=== PATIENT | female | born 1950 | race Hispanic/Latino ===

== ENCOUNTER 2023-12-02 11:19 | Emergency (ER) | payer OTHER, MEDICARE ==
[~2023-12-02] VITALS: Ht 154.9 cm; Wt 74.8 kg
[~2023-12-02 11:19] MED LIST: AMOX500T2 PO; ASPI-1005 PO; AUD IH; CLOP-31 PO; CYCL-309 PO; GUAI600T50 PO; LISI20TA24 PO; MECL-262 PO; METO-391 PO; NYST15CR39 TP; SIMV10TA97 PO
[2023-12-02 11:55] LABS: BASOPHILS # (AUTO) 0.02 K/uL (0.00-0.20); BASOPHILS % (AUTO) 0.3 % (0.0-5.0); EOSINOPHILS # (AUTO) 0.02 K/uL (0.00-0.70); EOSINOPHILS % (AUTO) 0.3 % (0.0-8.0); HEMATOCRIT 47.8 % (36-48); IMMATURE GRANULOCYTE ABSOLUTE 0.02 K/uL (0-1); LYMPHOCYTES # (AUTO) 1.7 K/uL (1.0-4.8); LYMPHOCYTES % (AUTO) 23.4 % (21.0-51.0); MEAN CORPUSCULAR HEMOGLOBIN 32.5 pg (27.0-33.0); MEAN CORPUSCULAR HGB CONC 33.1 g/dL (32.0-36.0); MEAN CORPUSCULAR VOLUME 98.4 fL (79-99); MONOCYTES # (AUTO) 0.6 K/uL (0.1-1.0); MONOCYTES % (AUTO) 8.5 % (3.0-13.0); NEUTROPHILS % (AUTO) 67.2 % (40.0-77.0); PLATELET COUNT (AUTO) 259 K/uL (130-400); RED BLOOD CELL COUNT(AUTO) 4.86 MIL/uL (4.00-5.50); RED CELL DISTRIBUTION WIDTH 13.6 % (11.0-15.5); WHITE BLOOD COUNT (AUTO) 7.5 K/uL (4.8-10.8)
[2023-12-02 12:03] LABS: POTASSIUM 3.4 mmol/L (3.5-5.1)
[2023-12-02 12:07] LABS: ALBUMIN 3.9 g/dL (3.5-5.0); BILIRUBIN,TOTAL 1.1 mg/dL (0.2-1.0); TOTAL PROTEIN, SERUM 7.4 g/dL (6.0-8.3)
[2023-12-02] MEDS ORDERED: 0.9%NACL 1000ML 1,000 ML IV ONE (12:30)
[2023-12-02] MEDS ORDERED: MORPHINE 4 MG SYG IVP ONE (12:30)
[2023-12-02 12:46] LABS: APPEARANCE,URINE CLEAR (CLEAR); BILIRUBIN,URINE NEGATIVE (NEGATIVE); COLOR,URINE COLORLESS (YELLOW); GLUCOSE, URINE (UA) NEGATIVE (NEGATIVE); KETONES,URINE NEGATIVE (NEGATIVE); LEUKOCYTE ESTERASE ,URINE NEGATIVE Leu/uL (NEGATIVE); NITRATE,URINE NEGATIVE (NEGATIVE); OCCULT BLOOD,URINE NEGATIVE (NEGATIVE); PROTEIN,URINE NEGATIVE (NEGATIVE); UROBILINOGEN,URINE 0.2 mg/dL (0.2-1.0)
[2023-12-02 12:52] LABS: ADD UA MICROSCOPIC NO
[2023-12-02 14:48] VITALS: BP 153/81; PULSE 64; RESP 18; O2SAT 99
[2023-12-02] MEDS ORDERED: HYDR-3420 PO (15:09)
[2023-12-02] MEDS ORDERED: POLY17PO4 PO (15:09)
== END 2023-12-02 15:41 | disposition home or self-care (01) ==
LOC: EDH 11:19
DX: K57.90 Diverticulosis of intestine, part unspecified, without perforation or abscess without bleeding (principal); I16.1 Hypertensive emergency; K59.00 Constipation, unspecified; I10 Essential (primary) hypertension; E11.9 Type 2 diabetes mellitus without complications; E78.00 Pure hypercholesterolemia, unspecified; Z79.82 Long term (current) use of aspirin; Z79.899 Other long term (current) drug therapy; Z98.890 Other specified postprocedural states; Z95.5 Presence of coronary angioplasty implant and graft
CPT/HCPCS: 99285; 74176; 96374; 96361; 71045; 84484; 80053; 83690; 85025; 81003; 36415; 93005; J2270

== ENCOUNTER → 2024-04-21 | Outpatient (CLI) | payer OTHER, MEDICARE ==
[~2024-04-21] MED LIST changes: +HYDR-3420 PO; +POLY17PO4 PO
[2024-04-21 15:07] LABS: BASOPHILS # (AUTO) 0.01 K/uL (0.00-0.20); BASOPHILS % (AUTO) 0.1 % (0.0-5.0); EOSINOPHILS # (AUTO) 0.01 K/uL (0.00-0.70); EOSINOPHILS % (AUTO) 0.1 % (0.0-8.0); HEMATOCRIT 42.3 % (36-48); IMMATURE GRANULOCYTE ABSOLUTE 0.02 K/uL (0-1); LYMPHOCYTES # (AUTO) 2.3 K/uL (1.0-4.8); LYMPHOCYTES % (AUTO) 30.4 % (21.0-51.0); MEAN CORPUSCULAR HEMOGLOBIN 32.2 pg (27.0-33.0); MEAN CORPUSCULAR HGB CONC 33.1 g/dL (32.0-36.0); MEAN CORPUSCULAR VOLUME 97.2 fL (79-99); MONOCYTES # (AUTO) 0.6 K/uL (0.1-1.0); MONOCYTES % (AUTO) 7.7 % (3.0-13.0); NEUTROPHILS # (AUTO) 4.7 K/uL (1.8-7.7); NEUTROPHILS % (AUTO) 61.4 % (40.0-77.0); PLATELET COUNT (AUTO) 266 K/uL (130-400); RED BLOOD CELL COUNT(AUTO) 4.35 MIL/uL (4.00-5.50); RED CELL DISTRIBUTION WIDTH 13.4 % (11.0-15.5); WHITE BLOOD COUNT (AUTO) 7.6 K/uL (4.8-10.8)
[2024-04-21 15:24] LABS: ALBUMIN 3.7 g/dL (3.5-5.0); BILIRUBIN,TOTAL 1.3 mg/dL (0.2-1.0); CREATININE 0.9 mg/dL (0.5-1.0); POTASSIUM 3.8 mmol/L (3.5-5.1); TOTAL PROTEIN, SERUM 6.8 g/dL (6.0-8.3)
== END | disposition home or self-care (01) ==
LOC: LAB 14:35
PROVIDERS: ATTEND Internal Medicine Gastroenterology
DX: R10.30 Lower abdominal pain, unspecified (principal)
CPT/HCPCS: 36415; 80053; 85025

== ENCOUNTER → 2024-05-04 | Outpatient (CLI) | payer OTHER, MEDICARE ==
[~2024-05-04] MED LIST changes: +IOHEXOL 350 MG/ML 100ML INFUS..BTL IV ONE
== END | disposition home or self-care (01) ==
LOC: RAH 10:27
PROVIDERS: ATTEND Internal Medicine Gastroenterology
DX: R10.30 Lower abdominal pain, unspecified (principal)
CPT/HCPCS: 74177; Q9967

== ENCOUNTER → 2024-05-19 | Outpatient (CLI) | payer OTHER, MEDICARE ==
[~2024-05-19] MED LIST changes: -IOHEXOL 350 MG/ML 100ML INFUS..BTL IV ONE
[2024-05-19 16:48] LABS: T4 (THYROXINE) 7.9 ug/dL (4.7-13.3)
== END | disposition home or self-care (01) ==
LOC: LAB 13:50
PROVIDERS: ATTEND Internal Medicine Cardiovascular Disease
DX: F41.9 Anxiety disorder, unspecified (principal); R25.1 Tremor, unspecified
CPT/HCPCS: 36415; 84436; 84443; 84481

== ENCOUNTER 2024-07-17 10:52 | Observation (INO) | payer OTHER, MEDICARE ==
[2024-07-17] VITALS (7 sets, daily range): BP systolic 138–199; BP diastolic 72–86; PULSE 50–67; RESP 16–18; TEMP 97.9–98.7; O2SAT 98–99
[~2024-07-17] VITALS: Ht 157.5 cm; Wt 66.7 kg
[2024-07-17 11:22] LABS: APPEARANCE,URINE CLEAR (CLEAR); BILIRUBIN,URINE NEGATIVE (NEGATIVE); COLOR,URINE LIGHT-YELLOW (YELLOW); GLUCOSE, URINE (UA) NEGATIVE (NEGATIVE); KETONES,URINE NEGATIVE (NEGATIVE); LEUKOCYTE ESTERASE ,URINE NEGATIVE Leu/uL (NEGATIVE); NITRATE,URINE NEGATIVE (NEGATIVE); OCCULT BLOOD,URINE SMALL (NEGATIVE); PROTEIN,URINE 10 mg/dL (NEGATIVE); UROBILINOGEN,URINE 0.2 mg/dL (0.2-1.0)
[2024-07-17 11:23] LABS: ADD UA MICROSCOPIC YES
[2024-07-17 11:25] LABS: MUCUS,URINE RARE LPF (None Seen); SQUAMOUS EPITHELIAL CELL,UR RARE /HPF (0-2); WBC,URINE 0-1 /HPF (0-1)
[2024-07-17 11:35] LABS: BASOPHILS # (AUTO) 0.02 K/uL (0.00-0.20); BASOPHILS % (AUTO) 0.2 % (0.0-5.0); EOSINOPHILS # (AUTO) 0.01 K/uL (0.00-0.70); EOSINOPHILS % (AUTO) 0.1 % (0.0-8.0); HEMATOCRIT 40.2 % (36-48); IMMATURE GRANULOCYTE ABSOLUTE 0.02 K/uL (0-1); LYMPHOCYTES # (AUTO) 1.5 K/uL (1.0-4.8); LYMPHOCYTES % (AUTO) 15.9 % (21.0-51.0); MEAN CORPUSCULAR HEMOGLOBIN 32.4 pg (27.0-33.0); MEAN CORPUSCULAR HGB CONC 33.6 g/dL (32.0-36.0); MEAN CORPUSCULAR VOLUME 96.4 fL (79-99); MONOCYTES # (AUTO) 0.9 K/uL (0.1-1.0); MONOCYTES % (AUTO) 9.1 % (3.0-13.0); NEUTROPHILS # (AUTO) 7.2 K/uL (1.8-7.7); NEUTROPHILS % (AUTO) 74.5 % (40.0-77.0); PLATELET COUNT (AUTO) 224 K/uL (130-400); RED BLOOD CELL COUNT(AUTO) 4.17 MIL/uL (4.00-5.50); RED CELL DISTRIBUTION WIDTH 13.2 % (11.0-15.5); WHITE BLOOD COUNT (AUTO) 9.6 K/uL (4.8-10.8)
[2024-07-17 11:42] LABS: POTASSIUM 3.4 mmol/L (3.5-5.1)
[2024-07-17 11:55] LABS: B-TYPE NATRIURETIC PEPTIDE 48 pg/mL (0-100)
[2024-07-17 12:17] LABS: PROTHROMBIN TIME 10.8 SEC (9.6-11.6)
[2024-07-17 12:18] LABS: PARTIAL THROMBOPLASTIN TIME 26.9 SEC (26.3-35.5)
[2024-07-17] MEDS: NITROGLYCERIN 0.4 MG SL TAB SL PRN ×2 (12:42→22:55)
[2024-07-17] MEDS: acetaMINOPHEN 500 MG TABLET PO PRN (13:11)
[2024-07-17] MEDS ORDERED: TELM40TA8 PO (13:20)
[2024-07-17] MEDS ORDERED: ATOR10 PO (13:20)
[2024-07-17] MEDS ORDERED: SOLI5TAB6 PO (13:20)
[2024-07-17 13:25] LABS: SARS-CoV-2, RNA, NAAT NEGATIVE SARS CoV-2 (NEGATIVE)
[2024-07-17 13:28] LABS: INFLUENZA TYPE A Negative For Type A (NEGATIVE); INFLUENZA TYPE B Negative For Type B (NEGATIVE)
[2024-07-17 14:08] LABS: HEMOGLOBIN A1C 5.4 % (4.0-6.0)
[2024-07-17 14:14] LABS: THYROID STIMULATING HORMONE 0.91 uIU/mL (0.36-3.74)
[2024-07-17] MEDS: FAMOTIDINE 20MG VIAL IV SCH (14:21)
[2024-07-17] MEDS: PoTASSium chloRIDE 20MEQ ER 20 MEQ ERTAB PO ONE (14:21)
[2024-07-17 15:38] LABS: ALBUMIN 3.4 g/dL (3.5-5.0); BILIRUBIN,DIRECT 0.3 mg/dL (0.0-0.3); BILIRUBIN,TOTAL 1.9 mg/dL (0.2-1.0); TOTAL PROTEIN, SERUM 6.4 g/dL (6.0-8.3)
[2024-07-17] MEDS: atorVAStatin 40 MG TABLET PO SCH (20:46)
[2024-07-17] MEDS: LoSARTan 50 MG TABLET PO SCH (20:46)
[2024-07-17] MEDS: hydrALAZine 20MG/ML VIAL IV PRN (22:39)
[2024-07-17] MEDS: morPHINE 2 MG SYG IVP ONE (23:30)
[2024-07-18] VITALS (8 sets, daily range): BP systolic 112–156; BP diastolic 44–88; PULSE 61–76; RESP 16–18; TEMP 98.3–99.4; O2SAT 97–98
[2024-07-18 04:27] LABS: CREATININE 0.9 mg/dL (0.5-1.0); MAGNESIUM 1.9 mg/dL (1.80-2.40); POTASSIUM 3.6 mmol/L (3.5-5.1)
[2024-07-18] MEDS: MAGNESIUM 2GM PREMIX 50ML 50 ML IV SCH (06:25)
[2024-07-18] MEDS: ENOXAPARIN SODIUM 30 MG/0.3 ML SQ SCH (09:00)
[2024-07-18] MEDS: Solifenacin Succinate 5 MG PO SCH (09:00)
[2024-07-18] MEDS: metOPROLol sucCINATE 50 MG TAB.SR.24H PO SCH (13:12)
[2024-07-18] MEDS: ASPIRIN 81MG CHEW TAB PO SCH (13:12)
[2024-07-18] MEDS: REGADENOSON 0.4 MG/5 ML PF SYG IVP SCH (13:37)
[2024-07-19 03:25] VITALS: BP 126/60; PULSE 54; RESP 16; TEMP 98.7
[2024-07-19 03:51] LABS: BASOPHILS # (AUTO) 0.02 K/uL (0.00-0.20); BASOPHILS % (AUTO) 0.3 % (0.0-5.0); EOSINOPHILS % (AUTO) 1.3 % (0.0-8.0); HEMATOCRIT 40.8 % (36-48); IMMATURE GRANULOCYTE ABSOLUTE 0.04 K/uL (0-1); LYMPHOCYTES # (AUTO) 2.6 K/uL (1.0-4.8); LYMPHOCYTES % (AUTO) 33.7 % (21.0-51.0); MEAN CORPUSCULAR HEMOGLOBIN 32.2 pg (27.0-33.0); MEAN CORPUSCULAR HGB CONC 31.9 g/dL (32.0-36.0); MONOCYTES # (AUTO) 0.8 K/uL (0.1-1.0); MONOCYTES % (AUTO) 10.8 % (3.0-13.0); NEUTROPHILS # (AUTO) 4.1 K/uL (1.8-7.7); NEUTROPHILS % (AUTO) 53.4 % (40.0-77.0); PLATELET COUNT (AUTO) 207 K/uL (130-400); RED BLOOD CELL COUNT(AUTO) 4.04 MIL/uL (4.00-5.50); RED CELL DISTRIBUTION WIDTH 13.2 % (11.0-15.5); WHITE BLOOD COUNT (AUTO) 7.8 K/uL (4.8-10.8)
[2024-07-19 04:03] LABS: MAGNESIUM 2.1 mg/dL (1.80-2.40); PHOSPHORUS 2.9 mg/dL (2.5-4.9); POTASSIUM 3.7 mmol/L (3.5-5.1)
[2024-07-19 07:00] VITALS: O2SAT 97
[2024-07-19 08:00] VITALS: BP 137/67; PULSE 52; RESP 16; TEMP 98.5
[2024-07-19 11:47] VITALS: BP 136/82; PULSE 53; RESP 16; TEMP 98.5
== END 2024-07-19 14:35 | disposition home or self-care (01) ==
LOC: EDH 10:52 → EDHIP 13:04 → INTOOBSV 13:04 → 2AH 17:52
PROVIDERS: ADMIT Internal Medicine; ATTEND Internal Medicine
DX: R07.89 Other chest pain (principal); Z20.822 Contact with and (suspected) exposure to COVID-19; I10 Essential (primary) hypertension; E78.5 Hyperlipidemia, unspecified; E87.6 Hypokalemia; R60.0 Localized edema; I25.2 Old myocardial infarction; I25.10 Atherosclerotic heart disease of native coronary artery without angina pectoris; R00.1 Bradycardia, unspecified; R00.2 Palpitations; Z90.710 Acquired absence of both cervix and uterus; Z79.82 Long term (current) use of aspirin; Z79.899 Other long term (current) drug therapy; Z95.5 Presence of coronary angioplasty implant and graft
CPT/HCPCS: 99285; 93306; 96375; 70450; 71045; 87635; 80061; 83036; 84443; 82550 ×3; 80076; 83735 ×3; 84484 ×4; 80048 ×3; 85025 ×2; 85610; 85730; 85651; 87804 ×2; 86140; 81001; 36415 ×3; 93356; 93005 ×2; 84145; 78452; 96365; 96366; 93017; 96376 ×2; 96372; 84100; 83880 ×2; J3490 ×5; J2270; J0360; J3475; J2785; A9500 ×2; G0378; J1650

== ENCOUNTER 2025-10-23 03:22 | Emergency (ER) | payer OTHER, MEDICARE ==
[~2025-10-23] VITALS: Ht 165.1 cm; Wt 84.4 kg
[~2025-10-23 03:22] MED LIST changes: -AMOX500T2 PO; +ATOR10 PO; -CYCL-309 PO; -GUAI600T50 PO; +NYST15CR34 TP; -NYST15CR39 TP; -SIMV10TA97 PO; +SOLI5TAB6 PO; +TELM40TA8 PO
--- NOTE | 2025-10-23 03:49 | ERN ---
ED Note History of Present Illness Stated Complaint: DIARRHEA Chief Complaint: Diarrhea Time Seen by MD: 03:32 Dictation: This is a 75-year-old female who presented to the emergency room stating that she has been having diarrhea since yesterday she stated that this started somewhere around the afternoon yesterday and she has had 5 episodes associated with generalized abdominal pain she denied any nausea vomitings or blood in the stool. As the pain and diarrhea persisted she came into the ER for further evaluation. No fever chills or rigors. No other family members have been sick. Temperature 97.6 pulse 70 respirations 16 blood pressure 138/81 with a pulse oximetry of 98% on room air Patient has chronic medical problems include hypertension, hyperlipidemia, coronary artery disease with prior history of NSTEMI in 2016 with findings of 75 % small OM three stenosis which was managed medically Allergies: Coded Allergies: No Known Allergies (Verified Allergy, Unknown, 10/07/16) Home Meds Active Scripts Hydralazine Hcl (APRESOLINE) 10 Mg Tablet, 10 MG PO QID, #120 TAB 3 Refills Prov:ERICK BLACKMON Sr., MD 12/02/23 Polyethylene Glycol 3350 (Miralax) 17 Gram Powd.pack, 17 GM PO TID, #90 PACK 3 Refills Prov:ERICK BLACKMON Sr., MD 12/02/23 Albuterol Sulfate (Albuterol Sulfate) 2.5 Mg/0.5 Ml Vial.neb, 2.5 MG IH Q6H for wheezing/sob, #20 INH 0 Refills Prov:ERICK BLACKMON Sr., MD 10/27/23 Meclizine HCl (Antivert) 25 Mg Tab.chew, 25 MG PO TID, #60 TAB Prov:PATTIE RODRIGEZ MD 12/26/22 Nystatin (Nystatin) 15 Gm Cream.gm., 15 GM TP TID, #60 GM APPLY TO EXTERNAL PERINEAL/VAGINAL/GROIN AREA THREE TIMES DAILY FOR 7 DAYS Prov:CHIRAG NEVILLE MD 10/08/16 Metoprolol Succinate (Metoprolol Succinate) 50 Mg Tab.er.24h, 50 MG PO DAILY, #30 TAB 3 Refills Prov:FAITH PEREIRA MD 10/08/16 Clopidogrel Bisulfate (Plavix) 75 Mg Tablet, 75 MG PO DAILY, #30 TAB 3 Refills Prov:FAITH PEREIRA MD 10/08/16 Aspirin (ASPIRIN 81MG CHEW TAB) 81 Mg Tab.chew, 81 MG PO DAILY, #30 TAB.CHEW 3 Refills Prov:FAITH PEREIRA MD 10/08/16 Reported Medications Atorvastatin Calcium (LIPITOR) 20 Mg Tab, 20 MG PO HS, TAB 07/17/24 Telmisartan (Telmisartan) 40 Mg Tablet, 40 MG PO DAILY, TAB 07/17/24 Solifenacin Succinate (Solifenacin Succinate) 5 Mg Tablet, 5 MG PO DAILY, TAB 07/17/24 Lisinopril (Lisinopril) 20 Mg Tablet, 20 MG PO DAILY, TAB 10/07/16 Past Medical History Past Medical History: CAD, Heart Disease, Other Additional Past Medical Hx: LA, PALPITATIONS Surgical History: Hysterectomy, Other Surgical History Other: EYE SX, CARDIAC STENTS Family History: Negative Social History: Negative History: Not Applicable RN Note Reviewed/Agreed w/PFSH: Yes Review of System Dictation Constitutional: Negative for fever,chills, and weight loss Eyes: Negative for injury, pain,redness, and discharge ENT: Negative for injury,pain or swelling Cardiovascular: Negative for chest pain, palpitations, and edema Respiratory: Negative for shortness of breath, cough, and wheezing, Abdomen/GI: Positive for abdominal pain, diarrhea, denied constipation nausea, vomiting, Back: Negative for injury and pain : Negative for injury, bleeding and discharge MS/Extremity: Negative for injury and deformity Skin: Negative for rash, and discoloration Neuro: Negative for headache, weakness, numbness, tingling, and seizure Psych: Negative for suicide ideation, homicidal ideation, and hallucinations Initial Vital Sign VS Vital Signs Date Time Temp Pulse Resp B/P (MAP) Pulse Ox O2 Delivery O2 Flow Rate FiO2 10/23/25 03:24 97.5 70 16 138/81 98 Room Air 10/23/25 03:53 0 21 Physical Exam Dictation General: awake, alert, NAD Head/Face: Normocephalic, atraumatic Eyes: PERRL, EOMI, vision at baseline ENT: oral cavity clear, TMs clear, no signs of infection Neck: Trachea midline, supple, no nuchal rigidity Cardiovascular: RRR, normal S1/S2, No MRGs, no JVD Respiratory: CTAB, no respiratory distress, No rales or wheezes Abdomen: Soft, non-tender, non-distended, normal bowel sounds, no guarding or rebound. Skin: Warm, dry, normal turgor, no rash MS/Extremity: Pulses equal, no cyanosis, neurovascular intact, FROM Neuro: COAx4, GCS 15, strength 5/5, CN 2-12 intact, normal cerebellar exam, normal gait, Psych: Normal behavior, mood, and affect normal Extremities-trace edema without any palpable cords, Homans sign is negative Results (Laboratory/Radiology) Laboratory/Radiology Laboratory Tests Test 10/23/25 03:51 10/23/25 04:29 White Blood Count 9.2 K/uL (4.8-10.8) Red Blood Count 4.39 MIL/uL (4.00-5.50) Hemoglobin 13.6 g/dL (12.0-16.0) Hematocrit 42.7 % (36-48) Mean Corpuscular Volume 97.3 fL (79-99) Mean Corpuscular Hemoglobin 31.0 pg (27.0-33.0) Mean Corpuscular Hemoglobin Concent 31.9 g/dL (32.0-36.0) L Red Cell Distribution Width 13.4 % (11.0-15.5) Platelet Count 271 K/uL (130-400) Mean Platelet Volume 9.4 fL (7.5-10.5) Immature Granulocyte % (Auto) 1.2 % (0-1) H Neutrophils (%) (Auto) 72.0 % (40.0-77.0) Lymphocytes (%) (Auto) 18.7 % (21.0-51.0) L Monocytes (%) (Auto) 7.5 % (3.0-13.0) Eosinophils (%) (Auto) 0.4 % (0.0-8.0) Basophils (%) (Auto) 0.2 % (0.0-5.0) Neutrophils # (Auto) 6.6 K/uL (1.8-7.7) Lymphocytes # (Auto) 1.7 K/uL (1.0-4.8) Monocytes # (Auto) 0.7 K/uL (0.1-1.0) Eosinophils # (Auto) 0.04 K/uL (0.00-0.70) Basophils # (Auto) 0.02 K/uL (0.00-0.20) Absolute Immature Granulocyte (auto 0.11 K/uL (0-1) Nucleated Red Blood Cells 0.0 % (0.0-0.19) Sodium Level 140 mmol/L (136-145) Potassium Level 3.6 mmol/L (3.5-5.1) Chloride Level 108 mmol/L (101-111) Carbon Dioxide Level 26 mmol/L (21-32) Blood Urea Nitrogen 20 mg/dL (7-18) H Creatinine 1.0 mg/dL (0.5-1.0) Glomerular Filtration Rate Calc 59 mL/min (>90) Random Glucose 99 mg/dL (70-105) Total Calcium 8.6 mg/dL (8.5-10.1) Troponin I High Sensitivity 7 ng/L (4-50) Lipase 21 U/L (16-77) Urine Color YELLOW (YELLOW) Urine Appearance CLOUDY (CLEAR) H Urine pH 5.5 (5.0-8.0) Urine Specific [place] 1.022 (1.001-1.031) Urine Protein NEGATIVE mg/dL (NEGATIVE) Urine Glucose (UA) NEGATIVE mg/dL (NEGATIVE) Urine Ketones NEGATIVE mg/dL (NEGATIVE) Urine Occult Blood MODERATE (NEGATIVE) H Urine Nitrate NEGATIVE (NEGATIVE) Urine Bilirubin NEGATIVE mg/dL (NEGATIVE) Urine Urobilinogen 0.2 mg/dL (0.2-1.0) Urine Leukocyte Esterase 75 [place]/uL (NEGATIVE) H Urine RBC 6-10 /HPF (0-1) H Urine WBC 6-10 /HPF (0-1) H Urine Squamous Epithelial Cells FEW /HPF (0-2) Urine Bacteria FEW /HPF (None Seen) Labs Reviewed?: Yes CT Scan Comment: REASON: profuse diarrhea , abdominal pain ORDERING PHYSICIAN: LEIGH WALL MD PROCEDURE: ABD PEL WO - CT ABDOMEN/PELVIS W/O CONTRAST EXAM: CT Abdomen and Pelvis Without IV contrast CLINICAL HISTORY: profuse diarrhea, abdominal pain TECHNIQUE: Axial computed tomography images of the abdomen and pelvis without intravenous contrast. CONTRAST: No IV contrast. COMPARISON: CT abdomen and pelvis dated 05/04/2024. FINDINGS: LUNG BASES: The lung bases appear clear. No pleural effusions are seen. LIVER: Unremarkable. GALLBLADDER AND BILE DUCTS: The gallbladder appears within normal limits. No radioopaque gallstones are seen. No biliary ductal dilatation is evident. PANCREAS: Unremarkable. SPLEEN: Unremarkable. ADRENAL GLANDS: Unremarkable. KIDNEYS, URETERS, AND BLADDER: The kidneys appear within normal limits. There is no hydronephrosis or hydroureter. No urinary calculi are seen. Prominent bilateral extrarenal pelvis. STOMACH AND BOWEL: Unremarkable appearance of the stomach and bowel. No evidence of bowel obstruction. No evidence suggesting enteritis or colitis. Small hiatus hernia. APPENDIX: No evidence of acute appendicitis on CT examination. PERITONEUM: No free fluid. No free air. LYMPH NODES: No lymphadenopathy is evident. REPRODUCTIVE: The uterus is not visualized. VASCULATURE: No evidence of abdominal aortic aneurysm. Atherosclerotic calcifications in the aorta and iliac arteries. BONES: No aggressive appearing osseous lesion. No acute osseous pathology evident. Small 1.8 mm defect at the level of the umbilicus with herniating fat. Moderate spondylosis at L5-S1 with narrowing of intervertebral neural foramina. Bilateral small fat-containing inguinal hernia. IMPRESSION: No acute intra-abdominal or pelvic abnormality. Small small fat-containing bilateral inguinal and umbilical hernia. Small hiatus hernia. Stable Moderate spondylosis at L5-S1 with narrowing of intervertebral neural foramina. /[place] DICTATED BY: KRISTEN THORPE Jr., MD DATE: 10/23/25647 ELECTRONICALLY SIGNED BY: KRISTEN THORPE Jr., MD DATE: 10/23/25647 ED Course ED Course Orders Procedure Category Date Status Time Vital Signs Per CPOE 10/23/25 Transmitted Routine 03:26 Saline Lock Iv CPOE 10/23/25 Transmitted 03:26 Cbc With Differential LAB 10/23/25 Complete 03:26 Lipase LAB 10/23/25 Complete 03:26 Urinalysis Profile LAB 10/23/25 Complete 03:26 12 Lead Ekg Tracing- EKG 10/23/25 Logged Technical 03:26 Troponin I High LAB 10/23/25 Complete Sensitivity 03:26 Basic Metabolic Panel LAB 10/23/25 Complete 03:26 Ondansetron 4mg Inj PHA 10/23/25 Complete (Zofran 4mg Inj) 04:00 0.9% Nacl 500ml PHA 10/23/25 Complete Iv.Soln (Ns 500ml 04:00 0.9% Nacl 500ml PHA 10/23/25 In Process Iv.Soln (Ns 500ml 04:00 Ondansetron 4mg Inj PHA 10/23/25 Complete (Zofran 4mg Inj) 04:00 Culture Urine ROCK 10/23/25 In Process 04:40 Ct Abdomen/Pelvis W/O CT 10/23/25 Resulted Contrast 04:40 Loperamide Hcl 2 Mg PHA 10/23/25 Complete Cap (Imodium) 06:30 Current Medications Medications (Trade) Dose Ordered Sig/Fritz Route PRN Reason Start Time Stop Time Status Last Admin Dose Admin Loperamide HCl (Imodium) 4 mg ONCE ONCE PO 10/23/25 06:30 10/23/25 06:31 DC 10/23/25 06:12 Ondansetron HCl (zoFRAN 4MG INJ) 4 mg ONCE ONCE IVP 10/23/25 04:00 10/23/25 04:30 DC 10/23/25 04:32 Ondansetron HCl (zoFRAN 4MG INJ) 4 mg ONCE ONCE IVP 10/23/25 04:00 10/23/25 04:30 DC Sodium Chloride 500 ml @ 0 mls/hr Q0M IV 10/23/25 04:00 11/22/25 03:59 10/23/25 04:31 Sodium Chloride 500 ml @ 0 mls/hr Q0M ONCE IV 10/23/25 04:00 10/23/25 04:30 DC Vital Signs Date Time Temp Pulse Resp B/P (MAP) Pulse Ox O2 Delivery O2 Flow Rate FiO2 10/23/25 06:01 71 18 145/85 97 Room Air* 0 10/23/25 04:12 60 18 144/71 98 Room Air* 0 10/23/25 03:53 98.1 66 12 153/74 98 Room Air* 0 10/23/25 03:24 97.5 70 16 138/81 98 Room Air Medical Decision Making MDM Differential diagnosis-Renal colic, biliary colic Gastritis, esophagitis, gastroesophageal reflux disease, acute cholecystitis, peptic ulcer disease, gastroenteritis, colitis, constipation, pancreatitis, diverticulitis, This is a 75-year-old female who presented to the emergency room stating that she has been having diarrhea since yesterday she stated that this started somewhere around the afternoon yesterday and she has had 5 episodes associated with generalized abdominal pain she denied any nausea vomitings or blood in the stool. As the pain and diarrhea persisted she came into the ER for further evaluation. No fever chills or rigors. No other family members have been sick. Temperature 97.6 pulse 70 respirations 16 blood pressure 138/81 with a pulse oximetry of 98% on room air Patient has chronic medical problems include hypertension, hyperlipidemia, coronary artery disease with prior history of NSTEMI in 2016 with findings of 75 % small OM three stenosis which was managed medically 4:30 a.m. CBC is with a normal limits BNP 7 shows a BUN and creatinine of 20 and 1.0 troponins 7 lipase 21. Urinalysis shows only very mild leuko esterase. She is not symptomatic. Patient received IV fluids and antiemetics. She demanded antidiarrheal and after the labs were reviewed patient received [address] scan of the abdomen and pelvis. 6:[address] scan of the abdomen and pelvis revealed no acute intra abdominal pathology colitis or enterocolitis. No acute changes. I updated the patient and her son on all the labs and CT findings and patient stated that she feels better that she would like to be discharged to home Rationale: Tests considered and ordered secondary to shared decision making include: Labs, CT scan of the abdomen and pelvis Previous outside records reviewed: Old ER visits. Risk of complication and/or morbidity or mortality of patient management: None Medications-Per medication reconciliation Need for hospitalization: Patient does not meet criteria for hospitalization. Need for emergency major/minor surgery: No There are no social concerns with this patient. Prescription drug management Prescriptions will include symptomatic care Patient's prior external medical records from other ER visits were reviewed by me as indicated. Prior testing and results from previous visits were reviewed. Prior tests were taken into account with medical decision making and resource utilization, independent historian/historians were used to obtain complete medical history. I independently interpreted the test that were performed, results were reviewed by me and considered findings on radiology if ordered. Medical management and examination interpretation discussions were had by me with other qualified healthcare professionals as indicated for the patient's care. Problem List Problem List: (1) Acute gastroenteritis (2) Volume depletion (3) Acute kidney injury DX & DISP Disposition: Discharge Departure Impression: Primary Impression: Acute gastroenteritis Additional Impressions: Volume depletion, Acute kidney injury Condition: Stable Additional Instructions: Patient and the caregiver have been informed of all the diagnostic tests and the imaging conducted during the today's visit to the emergency room and has verbalized understanding of the results I have personally reviewed and interpreted all diagnostic exams performed here in the ER today as well as the vital signs documented by the nursing staff. The patient is now being discharged to home and should follow up with the primary care physician or the specialist as directed by the ER staff. 1 schedule a follow-up appointment; call your primary care physician's office on the next business day to set up a follow-up appointment. 2. Monitor symptoms; if your symptoms worsen return to the emergency room immediately. 3. Return to school/work; you may return to work or school in 2 days or as directed by your primary care physician. 4. Manage pain and fever; take [id number] Tylenol or Advil for pain or fever if there are no contraindications follow the recommended dosage inst ructions. 5. Stay well hydrated; drink plenty of oral fluids to stay hydrated. 6. Take prescribed medications; take any medications prescribed in the emergency room as directed bring them with you to your primary care physician visit for possible adjustments. 7. Complete medication course; finish the entire course of medication as prescribed even if you start feeling better. Do not have any leftover medication unless instructed otherwise. 8. Follow up on culture results; if a urine culture and wound culture was ordered in the emergency room please follow-up with your primary care physician within 2-3 days to review the culture and sensitivity report for appropriate antibiotic therapy adjustments. 9. Resume home medications; you may resume taking your home medications unless instructed otherwise. Referrals: LADAN NAVA (PCP) LEIGH WALL MD Oct 23, 2025 03:49
[2025-10-23] MEDS ORDERED: 0.9% NACL 500ML IV.SOLN 500 ML IV ONE (04:00)
[2025-10-23 04:04] LABS: IMMATURE GRANULOCYTE ABSOLUTE 0.11 K/uL (0-1); NUCLEATED RED BLOOD CELLS 0.0 % (0.0-0.19); PLATELET COUNT (AUTO) 271 K/uL (130-400); RED BLOOD CELL COUNT(AUTO) 4.39 MIL/uL (4.00-5.50); RED CELL DISTRIBUTION WIDTH 13.4 % (11.0-15.5); WHITE BLOOD COUNT (AUTO) 9.2 K/uL (4.8-10.8)
[2025-10-23 04:16] LABS: CREATININE 1.0 mg/dL (0.5-1.0); GLOMERULAR FILTR. RATE CALC 59.0 mL/min (>90); GLUCOSE,RANDOM 99.0 mg/dL (70-105); SODIUM SERUM 140.0 mmol/L (136-145); UREA NITROGEN, BLOOD 20.0 mg/dL (7-18)
[2025-10-23] MEDS: 0.9% NACL 500ML IV.SOLN 500 ML IV SCH (04:31)
[2025-10-23 04:37] LABS: APPEARANCE,URINE CLOUDY (CLEAR); GLUCOSE, URINE (UA) NEGATIVE (NEGATIVE); LEUKOCYTE ESTERASE ,URINE 75 Leu/uL (NEGATIVE); NITRATE,URINE NEGATIVE (NEGATIVE); OCCULT BLOOD,URINE MODERATE (NEGATIVE)
[2025-10-23 04:39] LABS: ADD UA MICROSCOPIC YES
[2025-10-23 04:40] LABS: SQUAMOUS EPITHELIAL CELL,UR FEW /HPF (0-2)
--- NOTE | 2025-10-23 05:49 | HMCIMG ---
EXAM: CT Abdomen and Pelvis Without IV contrast CLINICAL HISTORY: profuse diarrhea, abdominal pain TECHNIQUE: Axial computed tomography images of the abdomen and pelvis without intravenous contrast. CONTRAST: No IV contrast. COMPARISON: CT abdomen and pelvis dated 05/04/2024. FINDINGS: LUNG BASES: The lung bases appear clear. No pleural effusions are seen. LIVER: Unremarkable. GALLBLADDER AND BILE DUCTS: The gallbladder appears within normal limits. No radioopaque gallstones are seen. No biliary ductal dilatation is evident. PANCREAS: Unremarkable. SPLEEN: Unremarkable. ADRENAL GLANDS: Unremarkable. KIDNEYS, URETERS, AND BLADDER: The kidneys appear within normal limits. There is no hydronephrosis or hydroureter. No urinary calculi are seen. Prominent bilateral extrarenal pelvis. STOMACH AND BOWEL: Unremarkable appearance of the stomach and bowel. No evidence of bowel obstruction. No evidence suggesting enteritis or colitis. Small hiatus hernia. APPENDIX: No evidence of acute appendicitis on CT examination. PERITONEUM: No free fluid. No free air. LYMPH NODES: No lymphadenopathy is evident. REPRODUCTIVE: The uterus is not visualized. VASCULATURE: No evidence of abdominal aortic aneurysm. Atherosclerotic calcifications in the aorta and iliac arteries. BONES: No aggressive appearing osseous lesion. No acute osseous pathology evident. Small 1.8 mm defect at the level of the umbilicus with herniating fat. Moderate spondylosis at L5-S1 with narrowing of intervertebral neural foramina. Bilateral small fat-containing inguinal hernia. IMPRESSION: No acute intra-abdominal or pelvic abnormality. Small small fat-containing bilateral inguinal and umbilical hernia. Small hiatus hernia. Stable Moderate spondylosis at L5-S1 with narrowing of intervertebral neural foramina. /[place]
[2025-10-23] MEDS: LOPERAMIDE HCL 2 MG CAP PO ONE (06:12)
[2025-10-23 06:59] VITALS: BP 143/84; PULSE 73; RESP 18; TEMP 98.3; O2SAT 98
--- NOTE | 2025-10-23 07:20 | EKG ---
[facility] Test Date: 2025-10-23 Test Time: 03:50:05 Pat Name: ALON JHAVERI Department: [facility] Room: Gender: F Email Marketer: [id number] : [id number] Requested By: LEIGH WALL Order Number: [id number] Reading MD: Jason Zaman Measurements Intervals [place] Rate: 57 P: 19 DC: 146 QRS: 4 QRSD: 88 T: 43 QT: 468 QTc: 456 Interpretive Statements Sinus rhythm Compared to ECG 07/17/2024 23:06:21 No significant changes Electronically Signed On 10-23-2025 19:07:23 TRUCK GUARD by Jason Zaman Please click the below link to view image of tracing.
== END 2025-10-23 07:19 | disposition home or self-care (01) ==
LOC: EDH 03:22
DX: K52.9 Noninfective gastroenteritis and colitis, unspecified (principal); E86.9 Volume depletion, unspecified; N17.9 Acute kidney failure, unspecified; I10 Essential (primary) hypertension; I25.10 Atherosclerotic heart disease of native coronary artery without angina pectoris; E78.5 Hyperlipidemia, unspecified; I25.2 Old myocardial infarction; Z90.710 Acquired absence of both cervix and uterus; Z95.5 Presence of coronary angioplasty implant and graft; Z79.02 Long term (current) use of antithrombotics/antiplatelets; Z79.82 Long term (current) use of aspirin; Z79.899 Other long term (current) drug therapy
CPT/HCPCS: 36415; 74176; 80048; 81001; 83690; 84484; 85025; 87086; 93005; 96374; 99285; J2405; J7040